=== PATIENT | female | born 1975 | race Caucasian/White ===

== ENCOUNTER 2018-05-19 15:08 | Emergency (ER) | payer OTHER, SELFPAY ==
[2018-05-19 15:28] VITALS: BP 119/78; PULSE 80; RESP 14; TEMP 36.8; O2SAT 100
--- NOTE | 2018-05-19 15:45 | DI.RAD_ITS ---
SYMPTOM/DIAGNOSIS: S/P TWISTING INJURY, R/O ACUTE FRACTURE/EFFUSION LEFT TIBIA AND FIBULA: There is no evidence of fracture. The ankle and knee are unremarkable as visualized. IMPRESSION: Negative left tibia and fibula.
--- NOTE | 2018-05-19 15:50 | ED.GENADUL_ITS ---
Discharge Plan Disposition Patient Disposition: HOME Condition: Stable Discharge Details Chief Complaint: Orthopedic Clinical Impression: Left knee sprain, Ligament laxity Primary Care Provider: Priti,Local ED Provider: Marilyn Alvarez Home Meds and New Rx's Prescriptions: New oxycodone 5 mg tablet 5 mg PO Q6H PRN (Reason: pain) Qty: 5 RF: 0 Discharge Instructions Instructions: Knee Sprain (ED) Additional Instructions: Rest, ice, elevate your left leg as much as possible. No weightbearing on your left leg until follow-up with orthopedics. Call your orthopedist tomorrow or Tuesday morning to schedule follow-up appointment for reevaluation. Return immediately to the emergency department any worsening or new concerning symptoms. Discharge Data Discharge Date/Time-TO BE ENTERED AT DEPARTURE: 05/19/18 18:10 Discharge Physician: Marilyn Alvarez Medical Decision Making 43-year-old female presents with left knee and leg pain after twisting her left leg while skiing just prior to arrival. Patient is complaining of pain in left hip, left knee and left leg. Denies head injury, chest, abdomen, neck, back injury or pain. Vitals within normal limits. Patient appears uncomfortable. She has pain with palpation and range of motion in the left posterior knee and left proximal lateral fibula. No deformity. Normal range of motion without pain in left hip. Chest and abdomen nontender without evidence of trauma. C-spine/T-spine/L -spine nontender. We will obtain a left knee and tib-fib x-ray, urine , Motrin and oxycodone. Patient agrees with no plan for x-ray left hip or pelvis. 1745 --x-rays negative for fracture. Reassessment of knee after pain meds reveals some ligamentous laxity on medial aspect. Repeat negative anterior and posterior drawer test. No ligamentous laxity on lateral aspect. Negative bilateral Nicho's test. There is no obvious deformity, edema, ecchymosis, erythema. Patient is from [place]. Will place a knee immobilizer, give crutches , and x-ray disc. Patient states she has an orthopedist in [place]. She is instructed to call them as soon as possible to schedule a follow-up appointment for reevaluation and for MRI of your knee. HPI General Mode of arrival: ambulatory . Date/Time Provider Initiated Documentation: 05/19/18 15:31 . Limitations to Documentation: no limitations . Information obtained by: patient . HPI Narrative: Patient is a 43-year-old female with a history of right ACL repair in the 90s who presents with left hip, left knee and leg pain after twisting her leg while skiing prior to arrival. Patient has been unable to bear weight since her injury. She has not taken anything for pain. She denies head injury or any other injury. She denies chest pain, abdominal pain, neck or back pain. Past medical history: None Surgical history: Right ACL repair, cholecystectomy Social history: Occasional alcohol, denies tobacco or drugs Medications: OCP Allergies: None LMP: 2 weeks ago PCP: [email or web address] Home Medications Medication Instructions Recorded Confirmed oxycodone 5 mg PO Q6H PRN #5 tab 05/19/18 Previous Rx's Medication Instructions Recorded oxycodone 5 mg PO Q6H PRN #5 tab 05/19/18 Allergies Allergy/AdvReac Type Severity Reaction Status Date / Time No Known Allergies Allergy Unverified 05/19/18 15:29 General Stated Complaint: Orthopedic JAMIE: 3 Review of Systems Review of Systems All systems reviewed & are unremarkable except as noted in HPI and below PFSH Social History Smoking/Tobacco Use Status: Never Exam Const General: cooperative and healthy appearing Orientation: alert and awake [facility] Head: normal to inspection Ears: hearing grossly normal bilaterally and external ears normal General nose exam: external nose normal Face and sinus: normal facial exam Mouth: oral mucosae normal Eyes General: appearance normal, both eyes and all related structures Eyelids: eyelids normal Pupils: PERRL EOM: EOM intact bilaterally Neck Neck: normal visual inspection Lymphatic: no lymphadenopathy noted Chest Chest: normal inspection of the chest Resp Effort & Inspection: normal respiratory effort and able to speak in complete sentences Auscultation: clear to auscultation bilaterally Cardio Rate: regular rate Rhythm: regular rhythm GI Inspection: normal to inspection Palpation: soft, not firm, no guarding, no hepatosplenomegaly, no masses and nontender Auscultation: normal bowel sounds Back/Spine/Pelvis Thoracic/Lumbar Spine: thoracic and lumbar spine normal to inspection, No thoracic spinal tenderness and No lumbar spinal tenderness Pelvis: no pain with anterior-posterior compression and buttock tenderness on the left (Mild. No evidence of trauma) Sacrum: no ecchymosis, no erythema, no swelling and no tenderness Coccyx: no swelling and no tenderness Skin General skin exam: no rashes or lesions noted Neuro General: alert and awake Cognition: normal cognition Speech: speech normal Gait: normal gait Motor: muscle tone normal throughout Sensory Exam: no sensory deficits noted Extrem General: normal to inspection, full ROM and normal capillary refill Left lower extremity: normal to inspection, full ROM, hip/thigh Details: normal to inspection; no tenderness and no swelling, knee (Pain with range of motion, difficult to assess ligaments due to pain. Tenderness to palpation of posterior knee. No deformity. No obvious ligament laxity. Pain with varus stress. No pain with valgus stress. Negative anterior/posterior drawer test.) , lower leg (Tenderness to palpation overlying left proximal fibula. No deformity, edema, ecchymosis, erythema.), ankle Details: normal to inspection; no tenderness, no swelling and no ecchymosis and foot (Left DP/PT pulse intact. ) Details: normal to inspection; no tenderness Psych Appearance: grossly normal Mental Status: mental status grossly normal Speech and Movement: speech and movement normal Affect: normal affect Thought Process: normal Course Vital Signs Temperature 98.2 F 05/19/18 15:28 Pulse 80 05/19/18 15:28 Respiratory Rate 14 05/19/18 15:28 Blood Pressure 119/78 05/19/18 15:28 Pulse Oximetry 100 05/19/18 15:28 Temperature 98.2 F 05/19/18 15:28 Temperature Source Temporal Artery Scan 05/19/18 15:28 Pulse 80 05/19/18 15:28 Respiratory Rate 14 05/19/18 15:28 Respiratory Effort 05/19/18 15:38 Blood Pressure 119/78 05/19/18 15:28 Blood Pressure Position Supine 05/19/18 15:28 Pulse Oximetry 100 05/19/18 15:28 Oxygen Delivery Method Room Air 05/19/18 15:28 Oxygen Flow Rate 0 05/19/18 15:28 Pain Level 8 05/19/18 15:28
[2018-05-19] MEDS: Ibuprofen 600 MG TAB PO (15:54)
[2018-05-19] MEDS: oxyCODONE 5 MG TAB PO ×2 (15:54→17:59)
--- NOTE | 2018-05-19 16:00 | DI.RAD_ITS ---
SYMPTOM/DIAGNOSIS: S/P TWISTING LT KNEE, R/O FRACTURE VS EFFUSION LEFT KNEE: No fracture or joint effusion is seen. The joint spaces are well maintained. IMPRESSION: Negative left knee.
--- NOTE | 2018-05-19 16:45 | DI.VRAD_ITS ---
EXAM: XR Left Tibia and Fibula, 2 Views EXAM DATE/TIME: 05/19/2018 3:48 PM CLINICAL HISTORY: 43 years old, female; Injury or trauma; Fall; Initial encounter; Sprain or strain; Patella or knee; Left; Injury details: Twisting TECHNIQUE: XR Left tibia and fibula 2 views COMPARISON: No relevant prior studies available. FINDINGS: Bones/joints: Normal. No fracture or subluxation. Soft tissues: Normal. IMPRESSION: No acute osseous findings. Dictated and Authenticated by: Laureano Grande MD. Ordering:DEYA MUÑOZ MD
--- NOTE | 2018-05-19 16:47 | DI.VRAD_ITS ---
EXAM: XR Left Knee, 4 or more Views EXAM DATE/TIME: 05/19/2018 4:01 PM CLINICAL HISTORY: 43 years old, female; Pain; Knee; Left TECHNIQUE: XR Left knee 4 or more views. COMPARISON: No relevant prior studies available. FINDINGS: Bones/joints: Normal. No acute fracture or subluxation. Soft tissues: Normal. IMPRESSION: No acute osseous findings. Dictated and Authenticated by: Laureano Grande MD. Ordering:DEYA MUÑOZ MD
[2018-05-19 17:49] VITALS: BP 124/76; PULSE 85; RESP 16; O2SAT 100
== END 2018-05-19 18:10 | disposition home or self-care (01) ==
LOC: ER 18:37
PROVIDERS: Emergency Provider Physician Assistant
DX: S83.92XA Sprain of unspecified site of left knee, initial encounter (principal); M23.92 Unspecified internal derangement of left knee; X50.9XXA Other and unspecified overexertion or strenuous movements or postures, initial encounter; Y93.23 Activity, snow (alpine) (downhill) skiing, snowboarding, sledding, tobogganing and snow tubing
CPT/HCPCS: 29505; 81025; 99284; 73564; 73590; E0114; L1830